=== PATIENT | male | born 1945 | race Caucasian/White ===

== ENCOUNTER → 2018-02-26 08:08 | Outpatient (CLI) | payer OTHER, SELFPAY ==
[2018-02-26 08:32] LABS: Add Manual Diff / Slide Review NO; Eosinophils Percent Auto 6.3 % (2-4); Hematocrit 44.7 % (41-53); Hemoglobin 14.9 g/dL (13.5-17.5); Lymphocytes Percent Auto 29.4 % (25-40); Mean Corpuscular HGB Conc 33.3 % (30-36); Mean Corpuscular Volume 93.1 fL (80-100); Monocytes Percent Auto 8.3 % (3-14); Neutrophils Absolute Auto 3900 /uL (1500-7000); Platelet Count 197 X10^3/uL (150-400); Red Blood Cell Count 4.81 X10^6/uL (4.5-5.9); Red Cell Distribution Width 13.6 % (11.6-14.8)
[2018-02-26 09:08] LABS: Alanine Aminotransferase 35 IU/L (21-72); Albumin 4.3 g/dL (3.5-5.0); Albumin Globulin Ratio 1.4 (1.0-2.8); Alkaline Phosphatase 73 U/L (38-126); Amylase 71 U/L (30-110); Aspartate Aminotransferase 26 IU/L (17-59); BUN Creatinine Ratio 17.5 (6-22); Bilirubin Total 0.5 mg/dL (0.2-1.3); Blood Urea Nitrogen 14 mg/dL (9-20); Calcium 9.2 mg/dL (8.4-10.2); Carbon Dioxide 24 mmol/L (22-32); Chloride 105 mmol/L (98-107); Cholesterol 197 mg/dL (140-199); Estimated Glomerular Filt Rate > 60.0 mL/min (>60); Glucose 122 mg/dL (80-110); HDL Cholesterol 43 mg/dL (40-60); HEMOLYSIS < 15 (0-50); LDL Cholesterol Calculated 110 mg/dL (<100); Lipase 44 U/L (23-300); Potassium 3.9 mmol/L (3.4-5.1); Sodium 140 mmol/L (137-145); Total Protein 7.3 g/dL (6.3-8.2); Triglycerides 221 mg/dL (35-150)
[2018-02-26 09:21] LABS: Appearance Urine UA CLEAR; Bilirubin Urine UA NEGATIVE (NEGATIVE); Color Urine UA YELLOW; Glucose Urine UA NEGATIVE (Negative); Ketones Urine UA NEGATIVE (NEGATIVE); Leukocyte Esterase Urine UA NEGATIVE (NEGATIVE); Nitrite Urine UA NEGATIVE (Negative); Occult Blood Urine UA NEGATIVE (Negative); Protein Urine UA NEGATIVE (Negative); Specific Gravity Urine UA 1.025 (1.000-1.035); Urobilinogen Urine UA 0.2 E.U./dL (0.2); pH Urine UA 5.5 (4.5-8.0)
[2018-02-26 09:36] LABS: Thyroid Stimulating Hormone 3.18 uIU/mL (0.47-4.68)
== END ==
PROVIDERS: PCP Family Medicine; Visit Provider Family Medicine
DX: I10 Essential (primary) hypertension (principal); M16.0 Bilateral primary osteoarthritis of hip; R10.11 Right upper quadrant pain; Z51.81 Encounter for therapeutic drug level monitoring; Z12.5 Encounter for screening for malignant neoplasm of prostate
CPT/HCPCS: 36415; 80053; 80061; 81003; 82150; 83690; 84443; 85025; G0103

== ENCOUNTER → 2018-06-08 12:03 | Outpatient (CLI) | payer OTHER, SELFPAY ==
[2018-06-08 13:06] LABS: Add Manual Diff / Slide Review NO; Basophils Absolute Auto 100 /uL (0-100); Eosinophils Absolute Auto 400 /uL (0-450); Eosinophils Percent Auto 5.2 % (2-4); Hematocrit 46.2 % (41-53); Hemoglobin 15.7 g/dL (13.5-17.5); Lymphocytes Absolute Auto 2400 /uL (1100-4500); Lymphocytes Percent Auto 30.9 % (25-40); Mean Corpuscular HGB Conc 33.9 % (30-36); Mean Corpuscular Hemoglobin 31.6 PG (26-34); Mean Corpuscular Volume 93.2 fL (80-100); Monocytes Absolute Auto 800 /uL (0-900); Monocytes Percent Auto 10.8 % (3-14); Neutrophils Absolute Auto 4000 /uL (1500-7000); Neutrophils Percent Auto 52.1 % (50-75); Platelet Count 199 X10^3/uL (150-400); Red Blood Cell Count 4.96 X10^6/uL (4.5-5.9); White Blood Cell Count 7.6 X10^3/uL (4.5-11.0)
== END ==
PROVIDERS: Family Provider Family Medicine; PCP Family Medicine; Visit Provider Otolaryngology Facial Plastic Surgery
DX: J32.9 Chronic sinusitis, unspecified (principal)
CPT/HCPCS: 36415; 85025; 93005; 93010

== ENCOUNTER → 2018-09-10 09:44 | Outpatient (CLI) | payer OTHER, SELFPAY ==
[2018-09-10 10:16] LABS: Hemoglobin A1C% w Est Avg Glu 6.2 % (4.0-6.0)
[2018-09-10 10:31] LABS: Alanine Aminotransferase 44 IU/L (21-72); Albumin 4.3 g/dL (3.5-5.0); Albumin Globulin Ratio 1.5 (1.0-2.8); Alkaline Phosphatase 87 U/L (38-126); Aspartate Aminotransferase 37 IU/L (17-59); Bilirubin Total 0.5 mg/dL (0.2-1.3); Blood Urea Nitrogen 17 mg/dL (9-20); Calcium 9.9 mg/dL (8.4-10.2); Carbon Dioxide 29 mmol/L (22-32); Chloride 103 mmol/L (98-107); Cholesterol 211 mg/dL (140-199); Estimated Glomerular Filt Rate > 60.0 mL/min (>60); Globulin 2.9 g/dL (1.7-4.1); Glucose 124 mg/dL (80-110); HDL Cholesterol 49 mg/dL (40-60); HEMOLYSIS < 15 (0-50); LDL Cholesterol Calculated 125 mg/dL (<100); Potassium 4.8 mmol/L (3.4-5.1); Sodium 139 mmol/L (137-145); Total Protein 7.2 g/dL (6.3-8.2); Triglycerides 184 mg/dL (35-150)
== END ==
PROVIDERS: PCP Family Medicine; Visit Provider Family Medicine
DX: E78.00 Pure hypercholesterolemia, unspecified (principal); I10 Essential (primary) hypertension; R73.9 Hyperglycemia, unspecified; Z51.81 Encounter for therapeutic drug level monitoring
CPT/HCPCS: 36415; 80053; 80061; 83036

== ENCOUNTER → 2018-12-09 15:29 | Outpatient (CLI) | payer OTHER, SELFPAY ==
[2018-12-09 16:23] LABS: Hemoglobin A1C% w Est Avg Glu 6.2 % (4.0-6.0)
[2018-12-09 16:38] LABS: Alanine Aminotransferase 35 IU/L (21-72); Albumin 4.4 g/dL (3.5-5.0); Albumin Globulin Ratio 1.6 (1.0-2.8); Alkaline Phosphatase 89 U/L (38-126); Aspartate Aminotransferase 36 IU/L (17-59); BUN Creatinine Ratio 16.7 (6-22); Bilirubin Total 0.5 mg/dL (0.2-1.3); Blood Urea Nitrogen 15 mg/dL (9-20); Calcium 9.8 mg/dL (8.4-10.2); Carbon Dioxide 27 mmol/L (22-32); Chloride 101 mmol/L (98-107); Cholesterol 212 mg/dL (140-199); Estimated Glomerular Filt Rate > 60.0 mL/min (>60); Globulin 2.8 g/dL (1.7-4.1); Glucose 102 mg/dL (80-110); HDL Cholesterol 44 mg/dL (40-60); HEMOLYSIS < 15 (0-50); LDL Cholesterol Calculated 128 mg/dL (<100); Potassium 4.1 mmol/L (3.4-5.1); Sodium 139 mmol/L (137-145); Total Protein 7.2 g/dL (6.3-8.2); Triglycerides 201 mg/dL (35-150)
== END ==
PROVIDERS: PCP Family Medicine; Visit Provider Family Medicine
DX: E78.00 Pure hypercholesterolemia, unspecified (principal); I10 Essential (primary) hypertension; R73.9 Hyperglycemia, unspecified; R73.09 Other abnormal glucose
CPT/HCPCS: 36415; 80053; 80061; 83036

== ENCOUNTER → 2019-06-29 10:41 | Outpatient (CLI) | payer OTHER, SELFPAY ==
[2019-06-29 11:47] LABS: Add Manual Diff / Slide Review NO; Basophils Absolute Auto 0 /uL (0-100); Basophils Percent Auto 0.6 % (0-2); Eosinophils Absolute Auto 200 /uL (0-450); Eosinophils Percent Auto 3.2 % (2-4); Hematocrit 42.5 % (41-53); Hemoglobin 14.6 g/dL (13.5-17.5); Lymphocytes Absolute Auto 2000 /uL (1100-4500); Lymphocytes Percent Auto 29.9 % (25-40); Mean Corpuscular HGB Conc 34.3 % (30-36); Mean Corpuscular Hemoglobin 32.5 PG (26-34); Mean Corpuscular Volume 94.7 fL (80-100); Monocytes Absolute Auto 600 /uL (0-900); Monocytes Percent Auto 8.7 % (3-14); Neutrophils Absolute Auto 3800 /uL (1500-7000); Neutrophils Percent Auto 57.6 % (50-75); Platelet Count 174 X10^3/uL (150-400); Red Blood Cell Count 4.49 X10^6/uL (4.5-5.9); Red Cell Distribution Width 13.9 % (11.6-14.8); White Blood Cell Count 6.7 X10^3/uL (4.5-11.0)
[2019-06-29 12:00] LABS: Hemoglobin A1C% w Est Avg Glu 6.7 % (4.0-6.0)
[2019-06-29 12:04] LABS: Alanine Aminotransferase 46 IU/L (<50); Albumin 4.4 g/dL (3.5-5.0); Albumin Globulin Ratio 1.4 (1.0-2.8); Alkaline Phosphatase 94 U/L (38-126); Aspartate Aminotransferase 51 IU/L (17-59); BUN Creatinine Ratio 19.4 (6-22); Bilirubin Total 0.6 mg/dL (0.2-1.3); Blood Urea Nitrogen 18 mg/dL (9-20); Calcium 9.6 mg/dL (8.4-10.2); Carbon Dioxide 27 mmol/L (22-32); Chloride 107 mmol/L (98-107); Cholesterol 192 mg/dL (140-199); Estimated Glomerular Filt Rate > 60.0 mL/min (>60); Globulin 3.2 g/dL (1.7-4.1); Glucose 126 mg/dL (80-110); HDL Cholesterol 40 mg/dL (40-60); HEMOLYSIS < 15 (0-50); LDL Cholesterol Calculated 111 mg/dL (<100); Potassium 4.7 mmol/L (3.4-5.1); Sodium 141 mmol/L (137-145); Total Protein 7.6 g/dL (6.3-8.2); Triglycerides 203 mg/dL (35-150)
[2019-07-01 21:41] LABS: CCP Antibodies IgG/IgA 104 units (0-19)
== END ==
PROVIDERS: PCP Family Medicine; Referring Provider Family Medicine; Visit Provider Family Medicine
DX: E78.00 Pure hypercholesterolemia, unspecified (principal); I10 Essential (primary) hypertension; R73.03 Prediabetes; Z87.39 Personal history of other diseases of the musculoskeletal system and connective tissue
CPT/HCPCS: 36415; 80053; 80061; 83036; 85025; 86200

== ENCOUNTER → 2019-10-12 08:42 | Outpatient (CLI) | payer OTHER, SELFPAY ==
[2019-10-12 10:17] LABS: Hemoglobin A1C% w Est Avg Glu 6.4 % (4.0-6.0)
== END ==
PROVIDERS: PCP Family Medicine; Referring Provider Family Medicine; Visit Provider Family Medicine
DX: E11.9 Type 2 diabetes mellitus without complications (principal)
CPT/HCPCS: 83036

== ENCOUNTER → 2020-03-20 08:17 | Outpatient (CLI) | payer OTHER, SELFPAY ==
[2020-03-20] MEDS: COVID-19 VACC #1, MRNA(MOD) 100 MCG/0.5 ML VIAL IM (08:20)
== END ==
PROVIDERS: PCP Family Medicine; Visit Provider Internal Medicine
DX: Z23 Encounter for immunization (principal)
CPT/HCPCS: 0011A; 91301

== ENCOUNTER → 2020-04-17 08:18 | Outpatient (CLI) | payer OTHER, SELFPAY ==
[2020-04-17] MEDS: COVID-19 VACC #2, MRNA(MOD) 100 MCG/0.5 ML VIAL IM (08:26)
== END ==
PROVIDERS: PCP Family Medicine; Visit Provider Internal Medicine
DX: Z23 Encounter for immunization (principal)
CPT/HCPCS: 0012A; 91301

== ENCOUNTER 2020-06-07 08:17 | Emergency (ER) | payer OTHER, SELFPAY ==
[2020-06-07 08:20] VITALS: BP 139/85; PULSE 78; RESP 181; TEMP 36.9; O2SAT 98; BMI 31.4
[2020-06-07 08:48] LABS: Add Manual Diff / Slide Review NO; Basophils Absolute Auto 100 /uL (0-100); Basophils Percent Auto 0.8 % (0-2); Eosinophils Absolute Auto 400 /uL (0-450); Eosinophils Percent Auto 3.6 % (2-4); Hematocrit 45.9 % (41-53); Hemoglobin 15.4 g/dL (13.5-17.5); Lymphocytes Absolute Auto 2300 /uL (1100-4500); Lymphocytes Percent Auto 22.1 % (25-40); Mean Corpuscular HGB Conc 33.6 % (30-36); Mean Corpuscular Hemoglobin 31.7 PG (26-34); Mean Corpuscular Volume 94.2 fL (80-100); Monocytes Absolute Auto 800 /uL (0-900); Monocytes Percent Auto 7.6 % (3-14); Neutrophils Absolute Auto 6800 /uL (1500-7000); Neutrophils Percent Auto 65.9 % (50-75); Platelet Count 186 X10^3/uL (150-400); Red Blood Cell Count 4.88 X10^6/uL (4.5-5.9); Red Cell Distribution Width 13.7 % (11.6-14.8); White Blood Cell Count 10.2 X10^3/uL (4.5-11.0)
[2020-06-07 08:52] LABS: INR 1.1 (0.9-1.3); Prothrombin Time 12.3 SECONDS (10.1-12.7)
[2020-06-07 08:54] LABS: PTT Partial Thromboplastin Tim 33 SECONDS (26.4-36.2)
[2020-06-07 08:56] LABS: Alanine Aminotransferase 49 IU/L (<50); Albumin 4.6 g/dL (3.5-5.0); Albumin Globulin Ratio 1.4 (1.0-2.8); Alkaline Phosphatase 104 U/L (38-126); Aspartate Aminotransferase 51 IU/L (17-59); BUN Creatinine Ratio 16.1 (6-22); Bilirubin Total 0.5 mg/dL (0.2-1.3); Blood Urea Nitrogen 14 mg/dL (9-20); Calcium 9.9 mg/dL (8.4-10.2); Carbon Dioxide 27 mmol/L (22-32); Chloride 103 mmol/L (98-107); Estimated Glomerular Filt Rate > 60.0 mL/min (>60); Globulin 3.4 g/dL (1.7-4.1); Glucose 125 mg/dL (80-110); HEMOLYSIS < 15 (0-50); Lipase 40 U/L (23-300); Sodium 139 mmol/L (137-145)
--- NOTE | 2020-06-07 09:02 | ED.ABDPAIN ---
HPI - Abdominal Pain General Chief Complaint: Abdominal Pain Stated Complaint: lower right abdominal and back pain Time Seen by Provider: 06/07/20 08:42 Source: patient Mode of arrival: Wheelchair Limitations: no limitations History of Present Illness HPI narrative: Patient is a 75-year-old male with history of ADHD and hypertension presenting with some right upper quadrant discomfort. He said last week he had some severe pain he started itching on his back and noted least that his stool became white. He continues to have french binding folder colored stool. And mild right upper quadrant pain. He denies any nausea or vomiting no chest pain or shortness of breath or fever. He was a long-time drinker he said since he was a kid he was up to a bottle of wine a day until February 23 at which point he quit and has not had a drink since. Patient is also complaining of some right flank pain. He says he did take some ibuprofen last week it and seemed to help it is not radiating down his leg no real abdominal radiation either. It seems to stay in [address] Denies any painful or frequent urination MD complaint: abdominal pain Onset (ago): day(s) Quality: cramping Relieving factors: nothing Exacerbating factors: nothing Related Data Previous Rx's Medication Instructions Recorded Disabled Parking Permit ea #1 03/13/17 So clean for CPAP #1 ea 02/17/18 lisinopril 10 1 tab PO QDAY #90 tab 10/06/19 mg-hydrochlorothiazide 12.5 mg tablet triamcinolone acetonide 0.5 % 1 applictn TOP DAILY #15 gram 10/06/19 topical cream methylphenidate HCl 20 mg tablet 20 mg PO TID #270 tab 04/26/20 Allergies Allergy/AdvReac Type Severity Reaction Status Date / Time acetaminophen [From TYLENOL] Allergy Severe ANAPHYLAXIS Verified 06/07/20 08:03 naltrexone AdvReac Intermediate Abdominal Verified 10/12/19 08:00 pain Review of Systems Review of Systems ROS Unobtainable: All systems reviewed & are unremarkable except as noted in HPI and below Constitutional Constitutional: Denies chills, Denies fever(s), Denies lethargy and Denies weakness ENT Ears, Nose, Mouth, and Throat: Denies change in voice, Denies neck pain and Denies sore throat Cardiovascular Cardiovascular: Denies chest pain, Denies irregular heart rhythm, Denies lightheadedness, Denies palpitations, Denies dyspnea, Denies dyspnea on exertion and Denies orthopnea Respiratory Respiratory: Denies cough, Denies dyspnea, Denies dyspnea on exertion and Denies wheezing Gastrointestinal Gastrointestinal: Reports as per HPI, Reports abdominal pain and Reports loose stools Genitourinary Genitourinary: Denies urinary hesitancy and Denies urinary incontinence Genitourinary: Denies urinary incontinence and Denies urinary hesitancy Musculoskeletal Musculoskeletal: Reports back pain (Right flank pain nonradiating) and Denies neck pain Integumentary/Breasts Skin/Breast: Reports pruritus, Denies rash and Denies skin pain Neurologic Neurologic: Denies weakness Endocrine Endocrine: Denies palpitations Allergic/Immunologic Allergic/Immunologic: Denies wheezing Patient History Medical History ADHD (attention deficit hyperactivity disorder) Allergic rhinitis (1964) Attention deficit hyperactivity disorder (ADHD), 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) Bilateral hearing loss (03/11/16) Blindness Blindness and low vision (03/11/16) Carpal tunnel syndrome (~2008) Chickenpox (1954) Cubital tunnel syndrome (~2008) Depression (1964) Diabetes Essential hypertension (03/11/16) Excessive drinking of alcohol Fractures (1999) Hearing loss (1964) History of rheumatoid arthritis Hypertension (Unknown) Measles (194) Migraines (1980) Obstructive sleep apnea syndrome (05/29/16) Osteoarthritis (Unknown) Pain of right hip joint (04/16/17) Partial blindness (1964) Primary osteoarthritis of both hips (04/16/17) Pure hypercholesterolemia (03/11/16) Recurrent sinusitis (1964) Rheumatic fever (1957) Rheumatoid arthritis (1999) Rheumatoid arthritis Right foot pain Sleep apnea (2006) Tinnitus of both ears (1964) Surgical History H/O sinus surgery History of ankle surgery (1988) History of carpal tunnel repair (~2008) S/P cubital tunnel release (~2008) Family History Father No problems noted. Mother Stroke Sister Stroke Social History Smoking Status: Former smoker Smoking Status: Former smoker Substance Use Type: does not use Exam Initial Vital Signs Initial Vital Signs: Vital Signs Temperature 98.4 F 06/07/20 08:20 Pulse Rate 78 06/07/20 08:20 Respiratory Rate 181 H 06/07/20 08:20 Blood Pressure 139/85 06/07/20 08:20 Pulse Oximetry 98 06/07/20 08:20 GENERAL: Alert pleasant and in no acute distress. HEENT: Head atraumatic,EOMI, pupils reactive, face symmetric, moist mucous membranes CARDIOVASCULAR: Regular rate and rhythm without murmurs, rubs or gallops. RESPIRATORY: Breath sounds equal bilaterally, no wheezes rales or rhonchi. ABDOMEN: Soft, nontender. Right upper quadrant tenderness : Mild CVA tenderness EXTREMITIES: Normal range of motion, no clubbing or edema. Neurovascularly intact NEUROLOGICAL: Alert and oriented x4.Normal gait and speech. SKIN: Warm, dry, no laceration, no petechiae, no rashes or lesions. Course Orders Ordered: ED Orders 06/07/20 08:32 Complete Blood Count AUTO DIFF Stat Comprehensive Metabolic Panel Stat Lipase Stat Partial Thromboplastin Time Stat Prothrombin Time INR Stat Troponin & CK Cardiac Panel Stat 06/07/20 09:02 US abdomen limited Stat 06/07/20 09:16 CT abdomen pelvis w con Stat Vital Signs Vital signs: Vital Signs - 8 hr 06/07/20 08:20 06/07/20 10:15 06/07/20 10:30 Temperature 98.4 F Pulse Rate 78 77 86 Respiratory Rate 181 H Blood Pressure 139/85 149/81 H Pulse Oximetry 98 94 96 MDM - Abdominal Pain Lab Data Attestation: I reviewed the patient's lab results. Result diagrams: 06/07/20 08:32 06/07/20 08:32 Labs: Lab Results 06/07/20 06/07/20 06/07/20 Range/Units 08:32 08:32 08:32 WBC 10.2 (4.5-11.0) X10^3/uL RBC 4.88 (4.5-5.9) X10^6/uL Hgb 15.4 (13.5-17.5) g/dL Hct 45.9 (41-53) % MCV 94.2 (80-100) fL MCH 31.7 (26-34) PG MCHC 33.6 (30-36) % RDW 13.7 (11.6-14.8) % Plt Count 186 (150-400) X10^3/uL Neut % (Auto) 65.9 (50-75) % Lymph % (Auto) 22.1 L (25-40) % [place] % (Auto) 7.6 (3-14) % Eos % (Auto) 3.6 (2-4) % Baso % (Auto) 0.8 (0-2) % Neut # (Auto) 6800 (1948-9311) /uL Lymph # (Auto) 2300 (9826-1865) /uL [place] # (Auto) 800 (0-900) /uL Eos # (Auto) 400 (0-450) /uL Baso # (Auto) 100 (0-100) /uL PT 12.3 (10.1-12.7) SECONDS INR 1.1 (0.9-1.3) APTT 33 (26.4-36.2) SECONDS Sodium 139 (137-145) mmol/L Potassium 4.0 (3.4-5.1) mmol/L Chloride 103 (98-107) mmol/L Carbon Dioxide 27 (22-32) mmol/L BUN 14 (9-20) mg/dL Creatinine 0.87 (0.66-1.25) mg/dL Estimated GFR > 60.0 (>60) mL/min BUN/Creatinine Ratio 16.1 (6-22) Glucose 125 H (80-110) mg/dL Calcium 9.9 (8.4-10.2) mg/dL Total Bilirubin 0.5 (0.2-1.3) mg/dL AST 51 (17-59) IU/L ALT 49 (<50) IU/L Alkaline Phosphatase 104 (38-126) U/L Total Creatine Kinase (55-170) U/L CK-MB (CK-2) CK-MB (CK-2) Rel Index Troponin I (0.01-0.034) ng/mL Total Protein 8.0 (6.3-8.2) g/dL Albumin 4.6 (3.5-5.0) g/dL Globulin 3.4 (1.7-4.1) g/dL Albumin/Globulin Ratio 1.4 (1.0-2.8) Lipase 40 (23-300) U/L 06/07/20 Range/Units 08:32 WBC (4.5-11.0) X10^3/uL RBC (4.5-5.9) X10^6/uL Hgb (13.5-17.5) g/dL Hct (41-53) % MCV (80-100) fL MCH (26-34) PG MCHC (30-36) % RDW (11.6-14.8) % Plt Count (150-400) X10^3/uL Neut % (Auto) (50-75) % Lymph % (Auto) (25-40) % [place] % (Auto) (3-14) % Eos % (Auto) (2-4) % Baso % (Auto) (0-2) % Neut # (Auto) (9115-7335) /uL Lymph # (Auto) (5681-2189) /uL [place] # (Auto) (0-900) /uL Eos # (Auto) (0-450) /uL Baso # (Auto) (0-100) /uL PT (10.1-12.7) SECONDS INR (0.9-1.3) APTT (26.4-36.2) SECONDS Sodium (137-145) mmol/L Potassium (3.4-5.1) mmol/L Chloride (98-107) mmol/L Carbon Dioxide (22-32) mmol/L BUN (9-20) mg/dL Creatinine (0.66-1.25) mg/dL Estimated GFR (>60) mL/min BUN/Creatinine Ratio (6-22) Glucose (80-110) mg/dL Calcium (8.4-10.2) mg/dL Total Bilirubin (0.2-1.3) mg/dL AST (17-59) IU/L ALT (<50) IU/L Alkaline Phosphatase (38-126) U/L Total Creatine Kinase 98 (55-170) U/L CK-MB (CK-2) TNP CK-MB (CK-2) Rel Index TNP Troponin I 0.018 (0.01-0.034) ng/mL Total Protein (6.3-8.2) g/dL Albumin (3.5-5.0) g/dL Globulin (1.7-4.1) g/dL Albumin/Globulin Ratio (1.0-2.8) Lipase (23-300) U/L Imaging Data US - abdomen: Radiologist's Impression: PROCEDURE: US ABDOMEN LIMITED INDICATIONS: RIGHT UPPER QUADRANT PAIN TECHNIQUE: Real-time focused scanning was performed of the abdomen, with image documentation. COMPARISON: None. FINDINGS: The liver size is normal measuring 16.1 cm in length. There is moderately diffusely hyperechoic hepatic parenchyma. No discrete mass or biliary dilatation. Relative hypoechogenicity is present in the gallbladder fossa. The gallbladder is normal without stones, sludge, wall thickening, or pericholecystic fluid. The common duct is normal at 3.8 mm. The proximal pancreas is not seen due to lack of good acoustic window. Incidental note made of 1.7 cm exophytic cyst arising from the right kidney. IMPRESSION: 1. Moderate hepatic steatosis. 2. Normal gallbladder. Dictated by: Blossom Talavera M.D. on 06/07/2020 at 10:08 CT scan - abdomen/pelvis: Radiologist's Impression: PROCEDURE: CT ABDOMEN PELVIS W CON INDICATIONS: ruq, white stool TECHNIQUE: After the administration of intravenous contrast, 5 mm thick sections acquired from the diaphragm to the symphysis. 5 mm coronal and sagittal reformats were acquired. For radiation dose reduction, the following was used: automated exposure control, adjustment of mA and/or kV according to patient size. COMPARISON: None. FINDINGS: Image quality: Excellent. ABDOMEN: Lung bases: Lung bases are clear. Heart size is normal. Solid organs: The liver is slightly enlarged and moderately diffusely hypodense. Scattered punctate calcifications consistent with healed granulomas. Gallbladder has a normal CT appearance. Biliary system is non dilated. Pancreas enhances normally. Spleen is normal in size and enhancement. Scattered punctate calcifications throughout the spleen are consistent with prior granulomatous disease. Low-density 1.1 cm right adrenal nodule. No left adrenal nodule. 1.9 cm exophytic left upper pole renal cyst and 2.0 cm exophytic anterior right upper pole renal cyst. Kidneys demonstrate normal size and enhancement, without hydronephrosis. Peritoneum and bowel: Bowel loops demonstrate normal wall thickness and caliber. Mildly increased quantity of solid stool present throughout the colon. Moderate diverticula of the sigmoid. No acute pericolonic inflammation. Small bowel loops are decompressed. No free fluid or air. Nodes and vessels: No retroperitoneal or mesenteric adenopathy by size criteria. Aorta and inferior vena cava are normal in size. Heavy abdominal aortic atherosclerotic calcification. Miscellaneous: No ventral hernias. PELVIS: Genitourinary: Bladder wall thickness is normal. Prostate gland size is normal. Miscellaneous: Small bilateral fat containing inguinal hernias. Several tiny inguinal lymph nodes bilaterally. Non pathologically enlarged. Bones: No suspicious bony lesions. No vertebral body compression fractures. IMPRESSION: 1. Moderate hepatic steatosis. 2. Evidence of remote granulomatous disease in the liver and spleen. 3. Tiny low-density right adrenal nodule. 4. Mild obstipation and moderate sigmoid diverticulosis. No acute inflammatory changes. Dictated by: Blossom Talavera M.D. on 06/07/2020 at 10:01 ECG Data Attestation: I personally reviewed and interpreted this ECG as follows: Prior ECG tracings: available for review Interpretation: Normal sinus rhythm rate 76 p.r. interval 236 QRS [address] changes or T-wave inversions MDM Narrative Medical decision making narrative: Patient complaining of pruritus and light-colored stool concern for gallbladder issue. CT ultrasound pending. Patient currently is not jaundiced and does not need or want anything for pain. At this time recommend outpatient follow-up. No further workup is indicated. Discharge Plan Departure Patient Disposition: Home Clinical Impression: Fatty liver Instructions: DI for General Gallbladder Conditions Activity Restrictions/Additional Instructions: *You have been diagnosed with fatty liver *What to do: At this time unclear what is causing her pain. ER noted to have what is called a fatty liver but this is unlikely causing her pain or discomfort or light-colored stools. No masses or abnormality found in her gallbladder. Good job withholding from alcohol please continue your sobriety *Continue to take medications as directed *Follow up with your primary care provider in 2-3 days *Return to ER if you should have increased pain, vomiting, itching is or any new, worsening or concerning symptoms Prescriptions: No Action (DME) So clean for CPAP Qty: 1 RF: 0 Disabled Parking Permit Qty: 1 RF: 0 lisinopril-hydrochlorothiazide [Zestoretic] 10-12.5 mg tablet 1 tab PO QDAY Qty: 90 RF: 1 triamcinolone acetonide 0.5 % cream 1 applictn TOP DAILY Qty: 15 RF: 5 methylphenidate HCl 20 mg tablet 20 mg PO TID Qty: 270 RF: 0 Referrals: Maicol Madrid DO [Primary Care Provider] -
[2020-06-07 09:14] LABS: Creatine Kinase 98 U/L (55-170)
--- NOTE | 2020-06-07 09:16 | DI.CT.S_ITS ---
PROCEDURE: CT ABDOMEN PELVIS W CON INDICATIONS: ruq, white stool TECHNIQUE: After the administration of intravenous contrast, 5 mm thick sections acquired from the diaphragm to the symphysis. 5 mm coronal and sagittal reformats were acquired. For radiation dose reduction, the following was used: automated exposure control, adjustment of mA and/or kV according to patient size. COMPARISON: None. FINDINGS: Image quality: Excellent. ABDOMEN: Lung bases: Lung bases are clear. Heart size is normal. Solid organs: The liver is slightly enlarged and moderately diffusely hypodense. Scattered punctate calcifications consistent with healed granulomas. Gallbladder has a normal CT appearance. Biliary system is non dilated. Pancreas enhances normally. Spleen is normal in size and enhancement. Scattered punctate calcifications throughout the spleen are consistent with prior granulomatous disease. Low-density 1.1 cm right adrenal nodule. No left adrenal nodule. 1.9 cm exophytic left upper pole renal cyst and 2.0 cm exophytic anterior right upper pole renal cyst. Kidneys demonstrate normal size and enhancement, without hydronephrosis. Peritoneum and bowel: Bowel loops demonstrate normal wall thickness and caliber. Mildly increased quantity of solid stool present throughout the colon. Moderate diverticula of the sigmoid. No acute pericolonic inflammation. Small bowel loops are decompressed. No free fluid or air. Nodes and vessels: No retroperitoneal or mesenteric adenopathy by size criteria. Aorta and inferior vena cava are normal in size. Heavy abdominal aortic atherosclerotic calcification. Miscellaneous: No ventral hernias. PELVIS: Genitourinary: Bladder wall thickness is normal. Prostate gland size is normal. Miscellaneous: Small bilateral fat containing inguinal hernias. Several tiny inguinal lymph nodes bilaterally. Non pathologically enlarged. Bones: No suspicious bony lesions. No vertebral body compression fractures. IMPRESSION: 1. Moderate hepatic steatosis. 2. Evidence of remote granulomatous disease in the liver and spleen. 3. Tiny low-density right adrenal nodule. 4. Mild obstipation and moderate sigmoid diverticulosis. No acute inflammatory changes. Dictated by: Blossom Talavera M.D. on 06/07/2020 at 10:01 Approved by: Blossom Talavera M.D. on 06/07/2020 at 10:08
[2020-06-07 09:25] LABS: Troponin I 0.018 ng/mL (0.01-0.034)
[2020-06-07 10:15] VITALS: BP 149/81; PULSE 77; O2SAT 94
[2020-06-07 10:30] VITALS: PULSE 86; O2SAT 96
== END 2020-06-07 10:43 | disposition home or self-care (01) ==
PROVIDERS: Emergency Provider Emergency Medicine; PCP Family Medicine
DX: K76.0 Fatty (change of) liver, not elsewhere classified (principal); R10.11 Right upper quadrant pain
CPT/HCPCS: 36415; 74177; 76705; 80053; 82550; 83690; 84484; 85025; 85610; 85730; 93005; 93010; 99284; Q9967

== ENCOUNTER 2020-06-11 07:11 | Emergency (ER) | payer OTHER, SELFPAY ==
--- NOTE | 2020-06-11 07:31 | ED_ITS ---
HPI - Extremity Injury (Lower) General Chief Complaint: Extremity Injury, Lower Stated Complaint: CAUGHT LEFT TOENAIL ON CARPET, ALMOST PULLED OFF Time Seen by Provider: 06/11/20 07:15 History of Present Illness HPI Narrative: 75-year-old gentleman with a history of diabetes, rheumatoid a rthritis, sleep apnea, hypertension presents after stubbing his toe and avulsing his great toenail. He notes that he has had lifelong difficulties with onychomycosis and the toenail is quite thickened and dystrophic. He is very interested in any options for helping with the onychomycosis and prevent in the nail dystrophy is the nail grows back. Related Data Previous Rx's Medication Instructions Recorded Disabled Parking Permit ea #1 03/13/17 So clean for CPAP #1 ea 02/17/18 lisinopril 10 1 tab PO QDAY #90 tab 10/06/19 mg-hydrochlorothiazide 12.5 mg tablet triamcinolone acetonide 0.5 % 1 applictn TOP DAILY #15 gram 10/06/19 topical cream methylphenidate HCl 20 mg tablet 20 mg PO TID #270 tab 04/26/20 terbinafine HCl 1 applic TOPICAL BID #30 g 06/11/20 Allergies Allergy/AdvReac Type Severity Reaction Status Date / Time acetaminophen [From TYLENOL] Allergy Severe ANAPHYLAXIS Verified 06/07/20 08:03 naltrexone AdvReac Intermediate Abdominal Verified 10/12/19 08:00 pain Review of Systems Review of Systems Narrative: Pertinent positive and negative findings as per HPI Remainder of review of systems is otherwise unremarkable for Constitutional: Fevers, chills, weakness CV: Chest pain, palpitations, Respiratory: Cough, wheeze, dyspnea GI: Nausea, vomiting, diarrhea, Patient History Medical History ADHD (attention deficit hyperactivity disorder) Allergic rhinitis (1964) Attention deficit hyperactivity disorder (ADHD), 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) Bilateral hearing loss (03/11/16) Blindness Blindness and low vision (03/11/16) Carpal tunnel syndrome (~2008) Chickenpox (1954) Cubital tunnel syndrome (~2008) Depression (1964) Diabetes Essential hypertension (03/11/16) Excessive drinking of alcohol Fractures (1999) Hearing loss (1964) History of rheumatoid arthritis Hypertension (Unknown) Measles (1949) Migraines (1980) Obstructive sleep apnea syndrome (05/29/16) Osteoarthritis (Unknown) Pain of right hip joint (04/16/17) Partial blindness (1964) Primary osteoarthritis of both hips (04/16/17) Pure hypercholesterolemia (03/11/16) Recurrent sinusitis (1964) Rheumatic fever (1958) Rheumatoid arthritis (2000) Rheumatoid arthritis Right foot pain Sleep apnea (2006) Tinnitus of both ears (1964) Surgical History H/O sinus surgery History of ankle surgery (1988) History of carpal tunnel repair (~2008) S/P cubital tunnel release (~2008) Family History Father No problems noted. Mother Stroke Sister Stroke Social History Smoking Status: Former smoker Smoking Status: Former smoker Substance Use Type: does not use Exam Narrative Exam Narrative: General: Alert appropriate in no acute distress Respiratory: Able to speak in full sentences, no obvious respiratory distress Skin: No obvious rashes, warm and dry Neurologic: Grossly intact no obvious asymmetries or abnormalities Psych: appropriate insight and affect, cooperative Extremity: Left great toe thickened dystrophic and entirely avulsed hanging on by some connective tissue in the nail bed. The nail base looks quite healthy. No evidence of infection. Initial Vital Signs Initial Vital Signs: Vital Signs Temperature 97.9 F 06/11/20 07:38 Pulse Rate 83 06/11/20 07:38 Respiratory Rate 18 06/11/20 07:38 Pulse Oximetry 95 06/11/20 07:38 Course Orders Ordered: Discontinued Medications Bacitracin (Bacitracin Oint 0.9 Gm Pckt) 1 applic TOP NOW ONE Stop: 06/11/20 07:46 Vital Signs Vital signs: Vital Signs - 8 hr 06/11/20 07:38 Temperature 97.9 F Pulse Rate 83 Respiratory Rate 18 Pulse Oximetry 95 MDM - Extremity Injury (Lower) MDM Narrative Medical decision making narrative: 75-year-old gentleman with severely dystrophic right toe great nail, stubbed on the carpet last night and avulsed the entire nail. There is a tiny debris of connective tissue holding it on that was at cut and the remainder of the toenail was removed without any difficulty or pain. We did discuss onychomycosis and now that he has had the toenail removed once the nail bed has healed over will have him begin daily topical antifungal treatment to that toe as that nail grows out. We clearly reviewed signs and symptoms of infection knowing that he does have non insulin-dependent diabetes. Will ask him to follow-up with his primary care physician. Discharge Plan Departure Patient Disposition: Home Clinical Impression: Avulsion of toenail of right foot, Onychomycosis Instructions: DI for Nail Avulsion Injury, DI for Onychomycosis Activity Restrictions/Additional Instructions: You actually avulsed the entire toenail and was hanging on only by some debris in the nail bed. Please continue to use bacitracin for a couple more days, until the nail bed does not look red and irritated and it no longer is tender. At that point, you can leave the toe uncovered and begin using topical antifungal treatment. One of the more effective treatments for toenail fungus is actually removing the nail and then using antifungal medication as the nail itself grows back. Keeping foot fungus down will help prevent recurrent nail infections. I have electronically transmitted a prescription for terbinafine topical antifungal treatment to [facility] in [place] for you to pickle solution maker this afternoon. Please use it at the nail site and work it into the nail bed as well as the rest of your foot to control overall foot fungus. Please follow-up with your primary care doctor in the near future. Thank you for coming in. I hope you heal quickly Prescriptions: New terbinafine HCl 1 % cream 1 applic topical BID Qty: 30 RF: 1 No Action (DME) So clean for CPAP Qty: 1 RF: 0 Disabled Parking Permit Qty: 1 RF: 0 lisinopril-hydrochlorothiazide [Zestoretic] 10-12.5 mg tablet 1 tab PO QDAY Qty: 90 RF: 1 triamcinolone acetonide 0.5 % cream 1 applictn TOP DAILY Qty: 15 RF: 5 methylphenidate HCl 20 mg tablet 20 mg PO TID Qty: 270 RF: 0 Referrals: Maicol Madrid, [Primary Care Provider] -
[2020-06-11 07:38] VITALS: PULSE 83; RESP 18; TEMP 36.6; O2SAT 95; BMI 31.4
[2020-06-11] MEDS: BACITRACIN OINT 0.9 GM PCKT 1 APPLIC TOP (08:00)
--- NOTE | 2020-06-11 08:06 | PC.NURSE ---
placed bacitracin and bandage per dr larisa bloom.
== END 2020-06-11 08:07 | disposition home or self-care (01) ==
PROVIDERS: Emergency Provider Emergency Medicine; PCP Family Medicine
DX: S91.209A Unspecified open wound of unspecified toe(s) with damage to nail, initial encounter (principal); B35.1 Tinea unguium
CPT/HCPCS: 99282

== ENCOUNTER → 2021-03-13 10:45 | Outpatient (CLI) | payer OTHER, SELFPAY ==
[2021-03-13 14:09] LABS: Hemoglobin A1C% w Est Avg Glu 6.4 % (4.0-6.0)
== END ==
PROVIDERS: PCP Family Medicine; Referring Provider Family Medicine; Visit Provider Family Medicine
DX: E11.9 Type 2 diabetes mellitus without complications (principal)
CPT/HCPCS: 36415; 83036

== ENCOUNTER → 2021-04-13 10:02 | Outpatient (CLI) | payer OTHER, SELFPAY ==
[2021-04-13 10:21] LABS: Add Manual Diff / Slide Review NO; Basophils Absolute Auto 100 /uL (0-100); Basophils Percent Auto 0.6 % (0-2); Eosinophils Absolute Auto 400 /uL (0-450); Eosinophils Percent Auto 5.2 % (2-4); Hematocrit 43.7 % (41-53); Lymphocytes Absolute Auto 2600 /uL (1100-4500); Lymphocytes Percent Auto 31.6 % (25-40); Mean Corpuscular HGB Conc 34.3 % (30-36); Mean Corpuscular Hemoglobin 32.7 PG (26-34); Mean Corpuscular Volume 95.2 fL (80-100); Monocytes Absolute Auto 600 /uL (0-900); Monocytes Percent Auto 6.8 % (3-14); Neutrophils Absolute Auto 4700 /uL (1500-7000); Neutrophils Percent Auto 55.8 % (50-75); Platelet Count 170 X10^3/uL (150-400); Red Blood Cell Count 4.59 X10^6/uL (4.5-5.9); Red Cell Distribution Width 14.2 % (11.6-14.8); White Blood Cell Count 8.4 X10^3/uL (4.5-11.0)
[2021-04-13 10:27] LABS: INR 1.1 (0.9-1.3); Prothrombin Time 12.6 SECONDS (10.1-12.7)
[2021-04-13 10:29] LABS: Hemoglobin A1C% w Est Avg Glu 6.4 % (4.0-6.0)
[2021-04-13 10:48] LABS: Alanine Aminotransferase 45 IU/L (<50); Albumin 4.6 g/dL (3.5-5.0); Albumin Globulin Ratio 1.5 (1.0-2.8); Alkaline Phosphatase 90 U/L (38-126); Aspartate Aminotransferase 52 IU/L (17-59); BUN Creatinine Ratio 17.9 (6-22); Bilirubin Total 0.8 mg/dL (0.2-1.3); Blood Urea Nitrogen 15 mg/dL (9-20); Calcium 9.8 mg/dL (8.4-10.2); Carbon Dioxide 28 mmol/L (22-32); Chloride 104 mmol/L (98-107); Cholesterol 212 mg/dL (140-199); Estimated Glomerular Filt Rate > 60.0 mL/min (>60); Globulin 3.1 g/dL (1.7-4.1); Glucose 150 mg/dL (80-110); HDL Cholesterol 48 mg/dL (40-60); HEMOLYSIS 22 (0-50); LDL Cholesterol Calculated 118 mg/dL (<100); Potassium 4.5 mmol/L (3.4-5.1); Sodium 140 mmol/L (137-145); Total Protein 7.7 g/dL (6.3-8.2); Triglycerides 232 mg/dL (35-150)
[2021-04-13 11:53] LABS: Vitamin B12 623 pg/mL (239-931)
== END ==
PROVIDERS: PCP Family Medicine; Referring Provider Family Medicine; Visit Provider Family Medicine
DX: E11.9 Type 2 diabetes mellitus without complications (principal); E78.00 Pure hypercholesterolemia, unspecified; I10 Essential (primary) hypertension; G62.9 Polyneuropathy, unspecified; K06.8 Other specified disorders of gingiva and edentulous alveolar ridge; Z12.5 Encounter for screening for malignant neoplasm of prostate
CPT/HCPCS: 36415; 80053; 80061; 82607; 83036; 85025; 85610; G0103

== ENCOUNTER → 2021-07-26 06:59 | Outpatient (CLI) | payer OTHER, SELFPAY ==
[2021-07-26 09:12] LABS: Hemoglobin A1C% w Est Avg Glu 6.8 % (4.0-6.0)
== END ==
PROVIDERS: PCP Family Medicine; Referring Provider Family Medicine; Visit Provider Family Medicine
DX: E11.9 Type 2 diabetes mellitus without complications (principal)
CPT/HCPCS: 36415; 83036

== ENCOUNTER → 2021-08-05 06:50 | Outpatient (CLI) | payer OTHER, SELFPAY ==
[2021-08-05 08:25] LABS: Free T4, Direct Thyroxine 1.14 ng/dL (0.78-2.19)
[2021-08-05 08:38] LABS: Thyroid Stimulating Hormone 3.27 uIU/mL (0.47-4.68)
== END ==
PROVIDERS: PCP Family Medicine; Referring Provider Family Medicine; Visit Provider Family Medicine
DX: E11.9 Type 2 diabetes mellitus without complications (principal); E78.00 Pure hypercholesterolemia, unspecified; G62.9 Polyneuropathy, unspecified; I10 Essential (primary) hypertension; K06.8 Other specified disorders of gingiva and edentulous alveolar ridge; L29.9 Pruritus, unspecified; M06.9 Rheumatoid arthritis, unspecified; R35.89 Other polyuria; R53.83 Other fatigue
CPT/HCPCS: 36415; 84439; 84443; 84481

== ENCOUNTER 2021-08-29 08:26 | Emergency (ER) | payer OTHER, SELFPAY ==
[2021-08-29 08:55] VITALS: BP 145/71; PULSE 88; RESP 18; TEMP 36.8; O2SAT 95
[2021-08-29 09:12] VITALS: BP 145/71; PULSE 91; RESP 18; TEMP 37.1; O2SAT 95; BMI 31.4
--- NOTE | 2021-08-29 09:22 | ED_ITS ---
HPI - Skin/Abscess/Foreign Bdy General Chief complaint: Skin/Abscess/Foreign Body Stated complaint: spider bite Time Seen by Provider: 08/29/21 08:58 Source: patient Mode of arrival: Family Vehicle Limitations: no limitations History of Present Illness HPI narrative: Patient is a 76-year-old male history of hypertension gout on aspirin presenting today with right armpit swelling and pain. It has been there for the last 3-4 days progressively getting worse and more painful. He says he was out working in the yard 2 days in a row He thinks he was bit by a spider. No prior history of abscesses. No fevers or chills. Related Data Previous Rx's Medication Instructions Recorded Disabled Parking Permit ea ##1 03/13/17 So clean for CPAP #1 ea 02/17/18 triamcinolone acetonide 0.5 % 1 applictn topical DAILY #15 grams 10/06/19 topical cream lisinopril 10 1 tab PO QDAY #90 tabs 07/27/20 mg-hydrochlorothiazide 12.5 mg tablet (Zestoretic) allopurinol 100 mg tablet 100 mg PO TID #90 tabs 02/28/21 methylphenidate HCl 20 mg tablet 20 mg PO TID #270 tabs 07/26/21 semaglutide 0.25 mg or 0.5 mg (2 0.25 mg (0.2 mL) SUBCUT QWEEK #1.5 08/23/21 mg/1.5 mL) subcutaneous pen mL injector (Ozempic) doxycycline hyclate 100 mg capsule 100 mg PO BID #14 caps 08/29/21 Allergies Allergy/AdvReac Type Severity Reaction Status Date / Time acetaminophen [From TYLENOL] Allergy Severe ANAPHYLAXIS Verified 08/23/21 08:16 empagliflozin Allergy Intermediate Difficulty Verified 08/23/21 08:16 [From Jardiance] Breathing dapagliflozin [From Farxiga] AdvReac Intermediate Verified 08/23/21 08:16 metformin AdvReac Intermediate Diarrhea Verified 08/23/21 08:16 naltrexone AdvReac Intermediate Abdominal Verified 08/23/21 08:16 pain Review of Systems Review of Systems Narrative: GENERAL: Denies chills,fever HEENT: Denies throat pain RESPIRATORY: Denies dyspnea, cough, wheezing CARDIOVASCULAR: Denies chest pain, palpitations GASTROINTESTINAL: Denies nausea, vomiting MUSCULOSKELETAL: Denies extremity pain, injury SKIN: See HPI NEUROLOGIC: Denies weakness, dizziness, headache, numbness 8 point review of systems is negative except for those stated above and HPI Patient History Medical History ADHD (attention deficit hyperactivity disorder) Allergic rhinitis (1964) Arthralgia Attention deficit hyperactivity disorder (ADHD), 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) Bilateral hearing loss (03/11/16) Bleeding gums Blindness Blindness and low vision (03/11/16) Carpal tunnel syndrome (~2008) Chickenpox (1954) Cubital tunnel syndrome (~2008) Depression (1965) Diabetes Essential hypertension (03/11/16) Excessive cerumen in both ear canals Excessive drinking of alcohol Fatigue Fractures (1999) Hearing loss (1964) History of rheumatoid arthritis Hypertension (Unknown) Measles (194) Migraines (1980) Obstructive sleep apnea syndrome (05/29/16) Osteoarthritis (Unknown) Pain of right hip joint (04/16/17) Partial blindness (1964) Peripheral neuropathy Polyuria Primary osteoarthritis of both hips (04/16/17) Pruritus Pure hypercholesterolemia (03/11/16) Recurrent acute sinusitis Recurrent sinusitis (1964) Rheumatic fever (1957) Rheumatoid arthritis (1999) Rheumatoid arthritis Rib pain on right side Right foot pain Segmental and somatic dysfunction of rib cage Sleep apnea (2006) Thoracic region somatic dysfunction Tinnitus of both ears (1964) Surgical History H/O sinus surgery History of ankle surgery (1988) History of carpal tunnel repair (~2008) S/P cubital tunnel release (~2008) Family History Father No problems noted. Mother Stroke Sister Stroke Social History Smoking Status: Former smoker Smoking Status: Former smoker alcohol intake frequency: 0-2 drinks per day Substance Use Type: does not use Exam Initial Vital Signs Initial Vital Signs: Vital Signs Temperature 98.2 F 08/29/21 08:55 Pulse Rate 88 08/29/21 08:55 Respiratory Rate 18 08/29/21 08:55 Blood Pressure 145/71 H 08/29/21 08:55 Pulse Oximetry 95 08/29/21 08:55 GENERAL: Alert pleasant 76-year-old male CARDIOVASCULAR: peripheral pulses in tact, cap refill <2 sec RESPIRATORY: No respiratory distress, speaks in full sentences without difficulty EXTREMITIES: Normal range of motion, no clubbing or edema. Neurovascularly intact NEUROLOGICAL: Cranial nerves II through XII grossly intact. Normal gait and speech. SKIN: Abscess right axilla 2 cm x 2 cm erythematous fluctuant mild streaking along the triceps area Procedures Abscess I/D I&D #1: Site: upper extremity (axilla) Side (if applicable): right Local Anesthetic: lidocaine 2% Amount of anesthesia used (mL): 5 Technique: incised with #11 blade Amount of fluid expressed (mL): 3 Complications: pain and bleeding Course Orders Ordered: Discontinued Medications Lidocaine HCl (Lidocaine 1% (Pf)) 4 ml SUBCUT NOW ONE Stop: 08/29/21 09:27 Last Admin: 08/29/21 10:29 Dose: Not Given Documented By: ROMANA Lidocaine HCl (Lidocaine 2% Inj Mdv) 1 ml SUBCUT NOW ONE Stop: 08/29/21 10:00 Last Admin: 08/29/21 10:33 Dose: Not Given Documented By: NATHALY Vital Signs Vital signs: Vital Signs - 8 hr 08/29/21 08:55 08/29/21 09:12 Temperature 98.2 F 98.7 F Pulse Rate 88 91 H Respiratory Rate 18 18 Blood Pressure 145/71 H 145/71 H Pulse Oximetry 95 95 Oxygen Delivery Method Room Air MDM - Skin/Abscess/Foreign Bdy MDM Narrative Medical decision making narrative: Patient has right axilla abscess with a simple I and D. Culture ispending. He has been on doxycycline. Discharge Plan Departure Patient Disposition: Home Clinical Impression: Skin abscess Qualifiers: Site of cutaneous abscess: extremity Site of cutaneous abscess of extremity: ax illa Laterality: right Qualified Code(s): L02.411 - Cutaneous abscess of right axilla Instructions: DI for Skin Abscess Activity Restrictions/Additional Instructions: *You have been diagnosed with skin abscess *What to do: Continue with warm compresses keep clean and dry with soap and water *Continue to take medications as directed Doxycycline 100 mg twice a day for 7 days *Follow up with your primary care provider in 2-3 days or call [phone] [and follow up with ortho, urology etc] *Return to ER if you should have [such as] [or] any new, worsening or concerning symptoms Prescriptions: New doxycycline hyclate 100 mg capsule 100 mg PO BID Qty: 14 0RF No Action (DME) So clean for CPAP Qty: 1 0RF Dose Instruction: As directed Rx Instructions: As directed, use as needed to clean CPAP machine. Disabled Parking Permit Qty: 1 0RF triamcinolone acetonide 0.5 % cream 1 applictn TOP DAILY Qty: 15 5RF lisinopril-hydrochlorothiazide [Zestoretic] 10-12.5 mg tablet 1 tab PO QDAY Qty: 90 3RF allopurinol 100 mg tablet 100 mg PO TID Qty: 90 11RF methylphenidate HCl 20 mg tablet 20 mg PO TID Qty: 270 0RF Ozempic 0.25 mg or 0.5 mg(2 mg/1.5 mL) pen injector 0.25 mg SUBCUT QWEEK Qty: 1.5 11RF Rx Instructions: for 4 doses Referrals: Maicol Madrid DO [Primary Care Provider] - Visit Report Forms: Patient Portal/API
[2021-08-29] MEDS: LIDOCAINE 2% INJ MDV 20 ML (10:31)
== END 2021-08-29 10:35 | disposition home or self-care (01) ==
PROVIDERS: Emergency Provider Emergency Medicine; PCP Family Medicine
DX: L02.411 Cutaneous abscess of right axilla (principal)
CPT/HCPCS: 10060; 87070; 87205; 99281; 99283

== ENCOUNTER → 2022-08-07 06:56 | Outpatient (CLI) | payer OTHER, SELFPAY ==
[2022-08-07 07:47] LABS: Add Manual Diff / Slide Review NO; Basophils Absolute Auto 0 /uL (0-100); Basophils Percent Auto 0.7 % (0-2); Eosinophils Absolute Auto 300 /uL (0-450); Eosinophils Percent Auto 4.5 % (2-4); Hematocrit 45.2 % (41-53); Hemoglobin 15.4 g/dL (13.5-17.5); Lymphocytes Absolute Auto 2300 /uL (1100-4500); Mean Corpuscular Hemoglobin 32.2 PG (26-34); Mean Corpuscular Volume 94.6 fL (80-100); Monocytes Absolute Auto 500 /uL (0-900); Neutrophils Absolute Auto 4400 /uL (1500-7000); Neutrophils Percent Auto 57.8 % (50-75); Platelet Count 189 X10^3/uL (150-400); Red Blood Cell Count 4.78 X10^6/uL (4.5-5.9); Red Cell Distribution Width 14.4 % (11.6-14.8); White Blood Cell Count 7.6 X10^3/uL (4.5-11.0)
[2022-08-07 08:41] LABS: Alanine Aminotransferase 28 IU/L (<50); Albumin 4.3 g/dL (3.5-5.0); Albumin Globulin Ratio 1.4 (1.0-2.8); Alkaline Phosphatase 92 U/L (38-126); Aspartate Aminotransferase 34 IU/L (17-59); BUN Creatinine Ratio 15.2 (6-22); Bilirubin Total 0.7 mg/dL (0.2-1.3); Blood Urea Nitrogen 14 mg/dL (9-20); Calcium 9.1 mg/dL (8.4-10.2); Carbon Dioxide 29 mmol/L (22-32); Chloride 103 mmol/L (98-107); Cholesterol 192 mg/dL (140-199); Estimated Glomerular Filt Rate > 60 mL/min (>60); Glucose 106 mg/dL (80-110); HDL Cholesterol 47 mg/dL (40-60); HEMOLYSIS < 15 (0-50); LDL Cholesterol Calculated 118 mg/dL (<100); Potassium 4.1 mmol/L (3.4-5.1); Sodium 139 mmol/L (137-145); Total Protein 7.3 g/dL (6.3-8.2); Triglycerides 134 mg/dL (35-150)
== END ==
PROVIDERS: PCP Family Medicine; Referring Provider Family Medicine; Visit Provider Family Medicine
DX: E11.9 Type 2 diabetes mellitus without complications (principal); I10 Essential (primary) hypertension; L29.9 Pruritus, unspecified
CPT/HCPCS: 36415; 80053; 80061; 85025

== ENCOUNTER → 2023-03-04 08:16 | Outpatient (CLI) | payer OTHER, SELFPAY ==
[2023-03-04 10:06] LABS: Hemoglobin A1C% w Est Avg Glu 6.3 % (4.0-6.0)
[2023-03-04 10:16] LABS: Cholesterol 196 mg/dL (140-199); HDL Cholesterol 50 mg/dL (40-60); LDL Cholesterol Calculated 120 mg/dL (<100); Triglycerides 130 mg/dL (35-150)
[2023-03-04 10:44] LABS: Creatinine Urine Random 81.8 mg/dL
[2023-03-04 10:45] LABS: Microalbumi Creatinin Ratio Ur 105.1 ug/mg CR (<30); Microalbumin Urine Random 8.6 mg/dL (0-1.6)
== END ==
PROVIDERS: PCP Family Medicine; Referring Provider Family Medicine; Visit Provider Family Medicine
DX: G62.9 Polyneuropathy, unspecified (principal); E11.9 Type 2 diabetes mellitus without complications; F10.10 Alcohol abuse, uncomplicated; E78.00 Pure hypercholesterolemia, unspecified; I10 Essential (primary) hypertension
CPT/HCPCS: 36415; 80061; 82043; 82570; 83036

== ENCOUNTER → 2023-08-05 08:06 | Outpatient (CLI) | payer OTHER, SELFPAY ==
[2023-08-05 09:02] LABS: Add Manual Diff / Slide Review NO; Basophils Absolute Auto 100 /uL (0-100); Eosinophils Absolute Auto 300 /uL (0-450); Eosinophils Percent Auto 4.2 % (2-4); Hematocrit 46.2 % (41-53); Hemoglobin 15.8 g/dL (13.5-17.5); Lymphocytes Absolute Auto 2300 /uL (1100-4500); Lymphocytes Percent Auto 29.2 % (25-40); Mean Corpuscular HGB Conc 34.3 % (30-36); Mean Corpuscular Hemoglobin 32.9 PG (26-34); Mean Corpuscular Volume 95.9 fL (80-100); Monocytes Absolute Auto 600 /uL (0-900); Monocytes Percent Auto 7.7 % (3-14); Neutrophils Absolute Auto 4600 /uL (1500-7000); Neutrophils Percent Auto 57.9 % (50-75); Platelet Count 179 X10^3/uL (150-400); Red Blood Cell Count 4.81 X10^6/uL (4.5-5.9); Red Cell Distribution Width 13.5 % (11.6-14.8); White Blood Cell Count 7.9 X10^3/uL (4.5-11.0)
[2023-08-05 09:09] LABS: Hemoglobin A1C% w Est Avg Glu 6.5 % (4.0-6.0)
[2023-08-05 09:28] LABS: Alanine Aminotransferase 28 IU/L (<50); Albumin 4.3 g/dL (3.5-5.0); Albumin Globulin Ratio 1.5 (1.0-2.8); Alkaline Phosphatase 94 U/L (38-126); Aspartate Aminotransferase 35 IU/L (17-59); BUN Creatinine Ratio 15.2 (6-22); Bilirubin Total 0.6 mg/dL (0.2-1.3); Blood Urea Nitrogen 14 mg/dL (9-20); Calcium 9.4 mg/dL (8.4-10.2); Carbon Dioxide 28 mmol/L (22-32); Chloride 106 mmol/L (98-107); Cholesterol 204 mg/dL (140-199); Estimated Glomerular Filt Rate > 60 mL/min (>60); Globulin 2.8 g/dL (1.7-4.1); Glucose 138 mg/dL (80-110); HDL Cholesterol 46 mg/dL (40-60); HEMOLYSIS < 15 (0-50); LDL Cholesterol Calculated 124 mg/dL (<100); Sodium 139 mmol/L (137-145); Total Protein 7.1 g/dL (6.3-8.2); Triglycerides 170 mg/dL (35-150)
[2023-08-05 12:51] LABS: Creatinine Urine Random 85.92 mg/dL
[2023-08-05 12:56] LABS: Microalbumin Urine Random 8.5 mg/dL (0-1.6)
== END ==
PROVIDERS: PCP Family Medicine; Referring Provider Family Medicine; Visit Provider Family Medicine
DX: E78.00 Pure hypercholesterolemia, unspecified (principal); E11.9 Type 2 diabetes mellitus without complications; G62.9 Polyneuropathy, unspecified; E11.29 Type 2 diabetes mellitus with other diabetic kidney complication; R80.9 Proteinuria, unspecified
CPT/HCPCS: 36415; 80053; 80061; 82043; 82570; 83036; 85025

== ENCOUNTER → 2024-07-13 06:41 | Outpatient (CLI) | payer OTHER, SELFPAY ==
[2024-07-13 07:37] LABS: Add Manual Diff / Slide Review NO; Basophils Absolute Auto 100 /uL (0-100); Basophils Percent Auto 0.8 % (0-2); Eosinophils Absolute Auto 300 /uL (0-450); Eosinophils Percent Auto 4.3 % (2-4); Hematocrit 43.5 % (41-53); Hemoglobin 14.6 g/dL (13.5-17.5); Lymphocytes Absolute Auto 2300 /uL (1100-4500); Lymphocytes Percent Auto 29.7 % (25-40); Mean Corpuscular HGB Conc 33.6 % (30-36); Mean Corpuscular Hemoglobin 31.8 PG (26-34); Mean Corpuscular Volume 94.8 fL (80-100); Monocytes Absolute Auto 600 /uL (0-900); Monocytes Percent Auto 7.2 % (3-14); Neutrophils Absolute Auto 4500 /uL (1500-7000); Platelet Count 157 X10^3/uL (150-400); Red Blood Cell Count 4.59 X10^6/uL (4.5-5.9); Red Cell Distribution Width 13.7 % (11.6-14.8); White Blood Cell Count 7.8 X10^3/uL (4.5-11.0)
[2024-07-13 07:46] LABS: Hemoglobin A1C% w Est Avg Glu 6.6 % (4.0-6.0)
[2024-07-13 07:58] LABS: Alanine Aminotransferase 27 IU/L (<50); Albumin 4.3 g/dL (3.5-5.0); Albumin Globulin Ratio 1.6 (1.0-2.8); Alkaline Phosphatase 84 U/L (38-126); Aspartate Aminotransferase 37 IU/L (17-59); BUN Creatinine Ratio 15.9 (6-22); Bilirubin Total 1.1 mg/dL (0.2-1.3); Blood Urea Nitrogen 14 mg/dL (9-20); Calcium 9.3 mg/dL (8.4-10.2); Carbon Dioxide 26 mmol/L (22-32); Chloride 105 mmol/L (98-107); Cholesterol 185 mg/dL (140-199); Estimated Glomerular Filt Rate > 60 mL/min (>60); Globulin 2.7 g/dL (1.7-4.1); Glucose 144 mg/dL (70-99); HDL Cholesterol 40 mg/dL (40-60); HEMOLYSIS < 15 (0-50); LDL Cholesterol Calculated 118 mg/dL (<100); Potassium 3.8 mmol/L (3.4-5.1); Sodium 140 mmol/L (137-145); Triglycerides 133 mg/dL (35-150)
[2024-07-13 08:07] LABS: NT-proBNP (BNP-Adult 18+) 1010 pg/mL (<450)
[2024-07-13 08:16] LABS: Creatinine Urine Random 121.65 mg/dL
[2024-07-13 08:32] LABS: Microalbumin Urine Random 25.9 mg/dL (0-1.6)
== END ==
PROVIDERS: PCP Family Medicine; Referring Provider Family Medicine; Visit Provider Family Medicine
DX: E11.29 Type 2 diabetes mellitus with other diabetic kidney complication (principal); R80.9 Proteinuria, unspecified; R06.09 Other forms of dyspnea; E78.00 Pure hypercholesterolemia, unspecified; I10 Essential (primary) hypertension
CPT/HCPCS: 36415; 80053; 80061; 82043; 82570; 83036; 83880; 85025